=== PATIENT | female | born 1960 | race Caucasian/White ===

== ENCOUNTER 2022-11-19 10:39 | Inpatient (IN) | payer MEDICAID ==
[~2022-11-19] VITALS: Ht 165.1 cm; Wt 80.7 kg
[2022-11-19] MEDS ORDERED: IOHEXOL-350 100 ML BOTTLE ONE (11:11)
[2022-11-19 12:08] LABS: BASOPHILS % 0.5 % (0.0-2.0); EOSINOPHILS % 0.6 % (0.0-5.0); HEMATOCRIT. 34.3 % (36.0-48.0); HEMOGLOBIN. 11.5 g/dL (12.0-16.0); MEAN CORPUSCULAR HEMOGLOBIN 28.9 pg (28.0-32.0); MEAN CORPUSCULAR VOLUME 85.9 fL (81.0-99.0); MONOCYTES % 4.1 % (2.0-8.0); NEUTROPHILS % 80.8 % (40.0-76.0); RED BLOOD CELL COUNT 3.99 mill/uL (4.2-5.4); RED CELL DISTRIBUTION WIDTH 13.4 % (11.6-14.6)
[2022-11-19 12:24] LABS: CHLORIDE 105 mEq/L (98-107)
[2022-11-19 12:30] LABS: MEAN PLATELET VOLUME 9.3 fl (7.4-10.4); PLATELET 263 x1000/uL (130-400)
[2022-11-19 12:34] LABS: CREATINE KINASE 186 IU/L (26-192); ETHANOL BLOOD < 10 mg/dL
[2022-11-19 13:16] LABS: PROTHROMBIN TIME 10.3 sec (9.6-11.0)
[2022-11-19 13:18] LABS: CLARITY URINE CLEAR (CLEAR); COLOR URINE YELLOW (YELLOW); KETONES URINE NEGATIVE (NEGATIVE); LEUKOCYTE ESTERASE URINE NEGATIVE (NEGATIVE); NITRITE URINE NEGATIVE (NEGATIVE); OCCULT BLOOD URINE TRACE (NEGATIVE); PH URINE 6.5 (4.5-8.0); PROTEIN URINE 2+ (NEGATIVE); SPECIFIC GRAVITY URINE 1.017 (1.005-1.030); UROBILINOGEN URINE 0.2 E.U./dL (0.2-1.0)
[2022-11-19 13:46] LABS: *AMPHETAMINES SCREEN URINE NEGATIVE (NEGATIVE); *BARBITURATES SCREEN URINE NEGATIVE (NEGATIVE); *BENZODIAZEPINES SCREEN URINE NEGATIVE (NEGATIVE); *COCAINE SCREEN URINE NEGATIVE (NEGATIVE); CANNABINOID URINE SCREEN PRESUMTIVE POSITIVE (NEGATIVE); METHADONE URINE SCREEN NEGATIVE (NEGATIVE); OPIATES URINE SCREEN NEGATIVE (NEGATIVE); PHENCYCLIDINE URINE SCREEN NEGATIVE (NEGATIVE)
[2022-11-19] MEDS ORDERED: LORAZEPAM 0.5MG TABLET PO PRN (19:30)
[2022-11-19] MEDS ORDERED: IPRATROPIUM/ALBUTEROL 0.5-3(2.5)MG/3ML NEB HHN PRN (19:30)
[2022-11-19] MEDS ORDERED: DOCUSATE SODIUM 100MG CAPSULE PO PRN (19:30)
[2022-11-19] MEDS ORDERED: ONDANSETRON HCL 4MG/2ML INJ IV PRN (19:30)
[2022-11-19] MEDS ORDERED: ACETAMINOPHEN 325MG TABLET PO PRN (19:30)
[2022-11-19] MEDS ORDERED: LABETALOL 5MG/ML SYR 20 MG/4 ML SYRINGE IV PRN (19:45)
[2022-11-19] MEDS: HYDROCODONE/ACETAMINOPHEN 5/325MG TABLET PO PRN (23:47)
[2022-11-20 00:26] VITALS: BP 158/54
[2022-11-20] MEDS ORDERED: ASPI-1160 MT (01:36)
[2022-11-20] MEDS ORDERED: ATOR20TA65 MT (01:36)
[2022-11-20] MEDS ORDERED: GLIP5TAB12 MT (01:36)
[2022-11-20] MEDS ORDERED: METF-414 MT (01:36)
[2022-11-20] MEDS ORDERED: DEXTROSE 50% WATER 50ML SYRINGE IV PRN (02:15)
[2022-11-20 04:00] VITALS: BP 119/39
[2022-11-20 06:53] LABS: BASOPHILS % 0.6 % (0.0-2.0); EOSINOPHILS % 0.9 % (0.0-5.0); HEMOGLOBIN. 10.6 g/dL (12.0-16.0); MEAN CORPUSCULAR HEMOGLOBIN 29.2 pg (28.0-32.0); MEAN CORPUSCULAR VOLUME 85.8 fL (81.0-99.0); MEAN PLATELET VOLUME 8.4 fl (7.4-10.4); MONOCYTES % 6.4 % (2.0-8.0); NEUTROPHILS % 68.1 % (40.0-76.0); PLATELET 274 x1000/uL (130-400); RED BLOOD CELL COUNT 3.62 mill/uL (4.2-5.4); RED CELL DISTRIBUTION WIDTH 13.5 % (11.6-14.6)
[2022-11-20] MEDS: BLOOD SUGAR DIAGNOSTIC STRIP TEST SCH ×4 (07:40→21:32)
[2022-11-20 08:00] VITALS: BP 152/85
[2022-11-20 08:01] LABS: CHLORIDE 111 mEq/L (98-107)
[2022-11-20] MEDS: INSULIN LISPRO 100 UNITS/ML SUBCUT SCH ×4 (08:10→21:28)
[2022-11-20 12:00] VITALS: BP 147/70
[2022-11-20] MEDS: HYDROCODONE/ACETAMINOPHEN 5/325MG TABLET PO PRN ×4 (12:26→23:47)
[2022-11-20 16:00] VITALS: BP 138/69
[2022-11-20] MEDS ORDERED: NALOXONE HCL 0.4MG/ML VIAL IV PRN (18:00)
[2022-11-20] MEDS ORDERED: IPRATROPIUM BROMIDE (0.02%) 0.5MG/2.5ML NEB HHN PRN (18:00)
[2022-11-20] MEDS ORDERED: ALBUTEROL (0.083%) 2.5MG/3ML NEB HHN PRN (18:00)
[2022-11-20 20:44] VITALS: BP 127/49
[2022-11-20] MEDS ORDERED: ATORVASTATIN CALCIUM 20MG TABLET PO SCH (21:00)
[2022-11-20] MEDS: ATORVASTATIN CALCIUM 40MG TABLET PO SCH (21:28)
[2022-11-21] VITALS (8 sets, daily range): BP systolic 115–169; BP diastolic 39–80
[2022-11-21] MEDS: BLOOD SUGAR DIAGNOSTIC STRIP TEST SCH ×4 (08:02→21:54)
[2022-11-21] MEDS: INSULIN LISPRO 100 UNITS/ML SUBCUT SCH ×4 (08:10→21:54)
[2022-11-21] MEDS: CLOPIDOGREL 75MG TABLET PO SCH (11:29)
[2022-11-21] MEDS: ASPIRIN 81MG TABLET PO SCH (11:29)
[2022-11-21] MEDS: ACETAMINOPHEN 325MG TABLET PO PRN (11:29)
[2022-11-21] MEDS ORDERED: LIP40 PO (14:33)
[2022-11-21] MEDS ORDERED: CLOP-31 PO (14:33)
[2022-11-21] MEDS: ATORVASTATIN CALCIUM 40MG TABLET PO SCH (21:52)
[2022-11-22] VITALS: BP 126/49
[2022-11-22 04:00] VITALS: BP 134/55
[2022-11-22 08:00] VITALS: BP 145/62
[2022-11-22] MEDS: BLOOD SUGAR DIAGNOSTIC STRIP TEST SCH ×4 (08:11→20:09)
[2022-11-22] MEDS: CLOPIDOGREL 75MG TABLET PO SCH (08:55)
[2022-11-22] MEDS: ASPIRIN 81MG TABLET PO SCH (08:55)
[2022-11-22] MEDS: INSULIN LISPRO 100 UNITS/ML SUBCUT SCH ×4 (08:57→20:09)
[2022-11-22 12:00] VITALS: BP 131/64
[2022-11-22] MEDS: ACETAMINOPHEN 325MG TABLET PO PRN (12:23)
[2022-11-22 16:00] VITALS: BP 145/63
[2022-11-22 19:17] LABS: FOLIC ACID (FOLATE) SERUM 15.8 ng/mL (>5.38)
[2022-11-22 20:00] VITALS: BP 175/68
[2022-11-22] MEDS: ATORVASTATIN CALCIUM 40MG TABLET PO SCH (20:08)
[2022-11-22] MEDS: PREGABALIN 50 MG CAPSULE PO SCH (20:08)
[2022-11-22] MEDS: CLONIDINE 0.1MG TABLET PO PRN (20:09)
[2022-11-23] VITALS: BP 140/59
[2022-11-23 04:00] VITALS: BP 162/68
[2022-11-23] MEDS: CLONIDINE 0.1MG TABLET PO PRN (04:34)
[2022-11-23] MEDS: BLOOD SUGAR DIAGNOSTIC STRIP TEST SCH ×4 (06:20→21:00)
[2022-11-23 08:00] VITALS: BP 132/51
[2022-11-23] MEDS: ASPIRIN 81MG TABLET PO SCH (08:42)
[2022-11-23] MEDS: CLOPIDOGREL 75MG TABLET PO SCH (08:42)
[2022-11-23] MEDS: HYDROCODONE/ACETAMINOPHEN 5/325MG TABLET PO PRN ×2 (08:42→22:02)
[2022-11-23] MEDS: AMLODIPINE 5MG TABLET PO SCH ×2 (08:42→22:03)
[2022-11-23] MEDS: INSULIN LISPRO 100 UNITS/ML SUBCUT SCH ×4 (08:43→21:00)
[2022-11-23 12:00] VITALS: BP 166/63
[2022-11-23 16:00] VITALS: BP 134/64
[2022-11-23 20:00] VITALS: BP 141/65
[2022-11-23] MEDS: PREGABALIN 50 MG CAPSULE PO SCH (22:02)
[2022-11-23] MEDS: ATORVASTATIN CALCIUM 40MG TABLET PO SCH (22:02)
[2022-11-24] VITALS (7 sets, daily range): BP systolic 106–151; BP diastolic 42–99
[2022-11-24] MEDS: BLOOD SUGAR DIAGNOSTIC STRIP TEST SCH ×4 (07:48→21:32)
[2022-11-24] MEDS: INSULIN LISPRO 100 UNITS/ML SUBCUT SCH ×3 (07:48→21:30)
[2022-11-24] MEDS: AMLODIPINE 5MG TABLET PO SCH ×2 (08:39→21:18)
[2022-11-24] MEDS: ASPIRIN 81MG TABLET PO SCH (08:39)
[2022-11-24] MEDS: CLOPIDOGREL 75MG TABLET PO SCH (08:39)
[2022-11-24] MEDS: ATORVASTATIN CALCIUM 40MG TABLET PO SCH (21:17)
[2022-11-24] MEDS: PREGABALIN 50 MG CAPSULE PO SCH (21:18)
[2022-11-24] MEDS: ACETAMINOPHEN 325MG TABLET PO PRN (21:18)
[2022-11-25 04:00] VITALS: BP 128/59
[2022-11-25] MEDS: INSULIN LISPRO 100 UNITS/ML SUBCUT SCH ×4 (07:50→21:22)
[2022-11-25] MEDS: BLOOD SUGAR DIAGNOSTIC STRIP TEST SCH ×4 (07:51→20:37)
[2022-11-25 08:00] VITALS: BP 115/38
[2022-11-25] MEDS: CLOPIDOGREL 75MG TABLET PO SCH (08:13)
[2022-11-25] MEDS: ASPIRIN 81MG TABLET PO SCH (08:13)
[2022-11-25] MEDS: AMLODIPINE 5MG TABLET PO SCH ×2 (08:14→20:36)
[2022-11-25 12:00] VITALS: BP 159/84
[2022-11-25 16:00] VITALS: BP 100/41
[2022-11-25 20:00] VITALS: BP 143/61
[2022-11-25] MEDS: PREGABALIN 50 MG CAPSULE PO SCH (20:36)
[2022-11-25] MEDS: ATORVASTATIN CALCIUM 40MG TABLET PO SCH (20:36)
[2022-11-25] MEDS: ACETAMINOPHEN 325MG TABLET PO PRN (21:51)
[2022-11-26] VITALS: BP 129/51
[2022-11-26 04:00] VITALS: BP 125/65
[2022-11-26] MEDS: BLOOD SUGAR DIAGNOSTIC STRIP TEST SCH ×4 (06:45→21:00)
[2022-11-26 08:00] VITALS: BP 137/62
[2022-11-26] MEDS: INSULIN LISPRO 100 UNITS/ML SUBCUT SCH ×4 (09:58→21:00)
[2022-11-26] MEDS: ASPIRIN 81MG TABLET PO SCH (09:59)
[2022-11-26] MEDS: CLOPIDOGREL 75MG TABLET PO SCH (10:00)
[2022-11-26] MEDS: AMLODIPINE 5MG TABLET PO SCH ×2 (10:00→21:00)
[2022-11-26] MEDS: ACETAMINOPHEN 325MG TABLET PO PRN ×2 (10:04→21:18)
[2022-11-26 12:00] VITALS: BP 145/59
[2022-11-26 16:00] VITALS: BP 132/54
[2022-11-26 20:00] VITALS: BP 149/55
[2022-11-26] MEDS: PREGABALIN 50 MG CAPSULE PO SCH (21:00)
[2022-11-26] MEDS: ATORVASTATIN CALCIUM 40MG TABLET PO SCH (21:00)
[2022-11-27] VITALS: BP 128/60
[2022-11-27 04:00] VITALS: BP 148/58
[2022-11-27] MEDS: BLOOD SUGAR DIAGNOSTIC STRIP TEST SCH ×4 (07:01→21:00)
[2022-11-27] MEDS: INSULIN LISPRO 100 UNITS/ML SUBCUT SCH ×4 (07:50→23:14)
[2022-11-27 08:00] VITALS: BP 146/70
[2022-11-27] MEDS: AMLODIPINE 5MG TABLET PO SCH ×2 (09:18→23:10)
[2022-11-27] MEDS: CLOPIDOGREL 75MG TABLET PO SCH (09:18)
[2022-11-27] MEDS: ASPIRIN 81MG TABLET PO SCH (09:18)
[2022-11-27 12:00] VITALS: BP 134/68
[2022-11-27 16:00] VITALS: BP 132/71
[2022-11-27 20:00] VITALS: BP 136/60
[2022-11-27] MEDS: ATORVASTATIN CALCIUM 40MG TABLET PO SCH (23:10)
[2022-11-27] MEDS: ACETAMINOPHEN 325MG TABLET PO PRN (23:11)
[2022-11-28] VITALS: BP 105/51
[2022-11-28] MEDS: PREGABALIN 50 MG CAPSULE PO SCH ×2 (00:04→22:00)
[2022-11-28 04:00] VITALS: BP 115/54
[2022-11-28] MEDS: BLOOD SUGAR DIAGNOSTIC STRIP TEST SCH ×4 (07:02→21:00)
[2022-11-28] MEDS: INSULIN LISPRO 100 UNITS/ML SUBCUT SCH ×4 (07:02→21:59)
[2022-11-28 08:00] VITALS: BP 136/69
[2022-11-28] MEDS: ASPIRIN 81MG TABLET PO SCH (09:04)
[2022-11-28] MEDS: AMLODIPINE 5MG TABLET PO SCH ×2 (09:04→22:01)
[2022-11-28] MEDS: CLOPIDOGREL 75MG TABLET PO SCH (09:04)
[2022-11-28 12:00] VITALS: BP 153/75
[2022-11-28 16:00] VITALS: BP 140/66
[2022-11-28 20:00] VITALS: BP 143/79
[2022-11-28] MEDS: ATORVASTATIN CALCIUM 40MG TABLET PO SCH (22:00)
[2022-11-28] MEDS: ACETAMINOPHEN 325MG TABLET PO PRN (22:00)
[2022-11-29] VITALS: BP 110/57
[2022-11-29 04:00] VITALS: BP 114/58
[2022-11-29] MEDS: BLOOD SUGAR DIAGNOSTIC STRIP TEST SCH ×2 (07:20→12:20)
[2022-11-29] MEDS: INSULIN LISPRO 100 UNITS/ML SUBCUT SCH ×2 (07:50→13:06)
[2022-11-29 08:00] VITALS: BP 152/68
[2022-11-29] MEDS: ASPIRIN 81MG TABLET PO SCH (10:23)
[2022-11-29] MEDS: AMLODIPINE 5MG TABLET PO SCH (10:23)
[2022-11-29] MEDS: CLOPIDOGREL 75MG TABLET PO SCH (10:23)
[2022-11-29 12:00] VITALS: BP 159/61
== END 2022-11-29 16:46 | disposition home health service (06) | DRG 199 ==
LOC: ER 10:39 → 7WST 18:55 → EDBEDREQ 18:59 → 6EST 11-23 10:28
PROVIDERS: ADMIT Family Medicine Adult Medicine; ATTEND Family Medicine Adult Medicine
DX: I16.0 Hypertensive urgency (principal); G45.9 Transient cerebral ischemic attack, unspecified; E11.40 Type 2 diabetes mellitus with diabetic neuropathy, unspecified; R47.01 Aphasia; E78.5 Hyperlipidemia, unspecified; I10 Essential (primary) hypertension; E11.65 Type 2 diabetes mellitus with hyperglycemia; E78.1 Pure hyperglyceridemia; R27.8 Other lack of coordination; Z20.822 Contact with and (suspected) exposure to COVID-19; Z86.73 Personal history of transient ischemic attack (TIA), and cerebral infarction without residual deficits; Z79.899 Other long term (current) drug therapy
CPT/HCPCS: 36415; 70496; 70498; 70551; 71045; 72141; 80048; 80053; 80061; 80305; 80320; 81003; 82550; 82607; 82746; 82962; 83036; 84443; 84484; 85025; 86850; 86900; 87426; 93005; 97116; 97162; 97166; 97530; 97535; 99291; A6261; C9803; J1815; J3490; Q9967; G0480